=== PATIENT | male | born 1945 | race Caucasian/White ===

== ENCOUNTER 2021-05-16 05:20 | Emergency (ER) | payer MEDICARE ==
[~2021-05-16] VITALS: Ht 177.8 cm; Wt 127.0 kg
[2021-05-16] MEDS ORDERED: LISINOPRIL20 MG PO (05:50)
[2021-05-16] MEDS ORDERED: ZESTRIL40 MG PO (06:57)
[2021-05-16] MEDS ORDERED: HYDROCODON-ACE1 EA10 PO (06:59)
[2021-05-16] MEDS ORDERED: HUMALOG100 UNIT/1 SUB-Q (07:00)
[2021-05-16] MEDS ORDERED: LANTUS100 UNITS/ SUB-Q (07:00)
[2021-05-16] MEDS ORDERED: LASIX40 MG PO (07:01)
--- NOTE | 2021-05-18 12:42 | EKG ---
[facility] [address] [facility] [place], [place] [address] Signed Sinus bradycardia with frequent and consecutive premature ventricular complexes Low voltage QRS Nonspecific T wave abnormality Prolonged QT Abnormal ECG No previous ECGs available Confirmed by MIRIAN CAMPOS DO ([id number]) on 05/18/2021 12:42:42 PM Electronically Signed By: MIRIAN CAMPOS DO 05/18/21 1242 PATIENT NAME: EMILYBECCA Electrocardiogram DATE OF : 45 PHYSICIAN: MIRIAN CAMPOS DO REPORT #: [id number] REPORT IS CONFIDENTIAL AND NOT TO BE RELEASED WITHOUT AUTHORIZATION
== END 2021-05-16 10:13 | disposition home or self-care (01) ==
LOC: ED 05:20
DX: T38.3X1A Poisoning by insulin and oral hypoglycemic [antidiabetic] drugs, accidental (unintentional), initial encounter (principal); E11.649 Type 2 diabetes mellitus with hypoglycemia without coma; E11.22 Type 2 diabetes mellitus with diabetic chronic kidney disease; N18.9 Chronic kidney disease, unspecified; R41.82 Altered mental status, unspecified; Z79.899 Other long term (current) drug therapy; Z79.4 Long term (current) use of insulin; Z20.822 Contact with and (suspected) exposure to COVID-19
CPT/HCPCS: 70450; 80053; 81001; 83690; 84484; 85025; 85610; 85730; 93005; 93010; 96374; 99285-25; C9803; J2405; U0003